=== PATIENT | female | born 1990 | race American Indian/Alaskan Native ===

== ENCOUNTER 2016-02-21 15:33 | Emergency (ER) | payer SELFPAY ==
--- NOTE | 2016-02-21 18:02 | Emergency Department Report ---
Chief Complaint: Vaginal Bleeding Stated Complaint: VAG BLEEDING 3 WKS Time Seen by Provider: 02/21/16 18:02 - HPI History of Present Illness: Patient here reports that she's having vaginal bleeding 2 hours prior to coming to the emergency room. She says she doesn't know she is . Last menstrual period 01/06/2016. She is complaining of lower abdominal pain 4-10 and feels crampy. Denies any nausea vomiting. Denies any urinary burning frequency or urgency. - ROS Review of Systems: all systems are negative unless stated in hpi above - Exam Vital Signs: Vital Signs 02/21/16 16:32 Temperature 98.2 F Pulse Rate 86 Respiratory 18 Rate Blood Pressure 126/86 O2 Sat by Pulse 100 Oximetry Physical Exam: General: This is a 25-year-old female well-nourished well-developed nontoxic in appearance. Abdomen: Soft,tender to palpate pelvic area. Normal bowel sounds. No CVA tenderness. CV: S1, S2. Rate and rhythm. MSE screening note: Focused history and physical exam performed. Due to findings the following was ordered:see [facility] ED Medical Decision Making - Medical Decision Making Medical decision making: Patient seen by provider in triage area. Appropriate protocol activated and patient to main ED to be seen by physician. ED Disposition for MSE Condition: Stable
[2016-02-21 18:29] LABS: Basophils % (Auto) 1.1 % (0.0-1.8); Eosinophils % (Auto) 5.9 % (0.0-4.3); Hematocrit 37.4 % (30.3-42.9); Hemoglobin 12.4 gm/dl (10.1-14.3); Mean Corpuscular HGB Conc 33 % (30-34); Mean Corpuscular Hemoglobin 28 pg (28-32); Mean Corpuscular Volume 84 fl (79-97); Platelet Count 392 K/mm3 (140-440); Red Blood Count 4.45 M/mm3 (3.65-5.03); Red Cell Distribution Width 14.7 % (13.2-15.2); White Blood Count 9.3 K/mm3 (4.5-11.0)
[2016-02-21 19:34] LABS: Bilirubin,Urine NEG (Negative); Blood,Urine LG (Negative); Ketones,Urine NEG (Negative); Leukocyte Esterase,Urine NEG (Negative); Nitrite,Urine NEG (Negative); Protein,Urine <15 mg/dL mg/dL (Negative); RBC,Urine < 1.0 /HPF (0.0-6.0); Urobilinogen,Urine < 2.0 mg/dL (<2.0); WBC,Urine < 1.0 /HPF (0.0-6.0)
[2016-02-21] MEDS ORDERED: TYLENOL PO ONE (22:39)
[2016-02-21] MEDS ORDERED: FLAGYL PO ONE (23:01)
--- NOTE | 2016-02-21 23:01 | Emergency Department Report ---
ED Female HPI - General Chief complaint: Vaginal Bleeding Stated complaint: VAG BLEEDING 3 WKS Time Seen by Provider: 02/21/16 18:51 Source: patient Mode of arrival: Ambulatory Limitations: No Limitations - History of Present Illness Initial comments: 25-year-old female with no significant past medical history presents to the hospital complaining of vaginal bleeding this afternoon. Patient states that she had vaginal bleeding while using the bathroom and lasted for about 3 hours and then resolved. Unsure if she is by LMP 01/06/2016. Patient states she had a negative test February 09 when she is went to the doctor but they've told her maybe it is too early for a positive test. Patient complains of constant crampy 5/10 abdominal pain. No aggravating or alleviating factors reported. No dysuria, nausea, vomiting reported. Patient has never been before. - Related Data Previous Rx's Medication Instructions Recorded Last Taken Type Amoxicillin [Trimox CAP] 500 mg PO Q8H #21 capsule 04/26/13 Unknown Rx HYDROcodone/APAP 5-325 [[place] 1 each PO Q6HR PRN #16 tablet 04/26/13 Unknown Rx 5-325 mg TAB] Promethazine Dm [Phenergan DM 5 ml PO Q6H PRN #120 ml 04/26/13 Unknown Rx 6.25-15 mg/5 ml] metroNIDAZOLE [Flagyl] 500 mg PO Q12HR #14 tab 02/21/16 Unknown Rx Allergies Allergy/AdvReac Type Severity Reaction Status Date / Time No Known Allergies Allergy Verified 04/26/13 00:41 ED Review of Systems ROS: Stated complaint: VAG BLEEDING 3 WKS Other details as noted in HPI Comment: All other systems reviewed and negative Other: Constitutional: No fevers chills Eyes: No eye pain visual changes ENT: No ear pain or throat pain Neck: Denies pain Respiratory: Denies cough wheezing shortness of breath Cardiovascular: Denies chest pain, palpitations GI: Denies nausea, vomiting, diarrhea : as pe rhpi Musculoskeletal: Denies back pain Skin: Denies rash, lesions, erythema Neurologic: Denies headache, numbness, weakness Psychiatric: Denies suicidal ideation, hallucinations ED Past Medical Hx - Past Medical History Previous Medical History?: No - Surgical History Past Surgical History?: No - Social History Smoking Status: Never Smoker Substance Use Type: None - Medications Home Medications: Home Medications Medication Instructions Recorded Confirmed Last Taken Type Amoxicillin [Trimox CAP] 500 mg PO Q8H #21 capsule 04/26/13 Unknown Rx HYDROcodone/APAP 5-325 [[place] 1 each PO Q6HR PRN #16 tablet 04/26/13 Unknown Rx 5-325 mg TAB] Promethazine Dm [Phenergan DM 5 ml PO Q6H PRN #120 ml 04/26/13 Unknown Rx 6.25-15 mg/5 ml] metroNIDAZOLE [Flagyl] 500 mg PO Q12HR #14 tab 02/21/16 Unknown Rx ED Physical Exam - General Limitations: No Limitations - Other Other exam information: General: No limitations, patient is alert in no acute distress Head exam: Atraumatic, normocephalic Eyes exam: Normal appearance, pupils equal reactive to light, extraocular movements intact ENT: Moist mucous membrane, normal oropharynx Neck exam: Normal inspection, full range of motion, no meningismus nontender Respiratory exam: Clear to auscultation bilateral, no wheezes, rales, crackles Cardiovascular: Normal rate and rhythm, normal heart sounds Abdomen: Soft, nondistended, and nontender, with normal bowel sounds, no rebound, or guarding : Brown minimum blood in vault, no CMT or adnexal tenderness Extremity: Full range of motion normal inspection no deformity Back: Normal Inspection, full range of motion, no tenderness Neurologic: Alert, oriented x3, cranial nerves intact, no motor or sensory deficit Psychiatric: normal affect, normal mood Skin: Warm, dry, intact ED Course Vital Signs 02/21/16 16:32 Temperature 98.2 F Pulse Rate 86 Respiratory 18 Rate Blood Pressure 126/86 O2 Sat by Pulse 100 Oximetry - Reevaluation(s) Reevaluation #1: 02/21/16 23:04 Tylenol and Flagyl ordered ED Medical Decision Making - Lab Data Result diagrams: 02/21/16 18:16 Lab Results 02/21/16 02/21/16 02/21/16 Range/Units 18:15 18:16 18:16 WBC 9.3 (4.5-11.0) K/mm3 RBC 4.45 (3.65-5.03) M/mm3 Hgb 12.4 (10.1-14.3) gm/dl Hct 37.4 (30.3-42.9) % MCV 84 (79-97) fl MCH 28 (28-32) pg MCHC 33 (30-34) % RDW 14.7 (13.2-15.2) % Plt Count 392 (140-440) K/mm3 Lymph % (Auto) 35.6 H (13.4-35.0) % [place] % (Auto) 9.5 H (0.0-7.3) % Eos % (Auto) 5.9 H (0.0-4.3) % Baso % (Auto) 1.1 (0.0-1.8) % Lymph # 3.3 (1.2-5.4) K/mm3 [place] # 0.9 H (0.0-0.8) K/mm3 Eos # 0.6 H (0.0-0.4) K/mm3 Baso # 0.1 (0.0-0.1) K/mm3 Seg Neutrophils % 47.9 (40.0-70.0) % Seg Neutrophils # 4.5 (1.8-7.7) K/mm3 HCG, Qual Negative (Negative) Urine Color Yellow (Yellow) Urine Turbidity Clear (Clear) Urine pH 6.0 (5.0-7.0) Ur Specific [place] 1.026 (1.003-1.030) Urine Protein <15 mg/dl (Negative) mg/dL Urine Glucose (UA) Neg (Negative) mg/dL Urine Ketones Neg (Negative) mg/dL Urine Blood Lg (Negative) Urine Nitrite Neg (Negative) Urine Bilirubin Neg (Negative) Urine Urobilinogen < 2.0 (<2.0) mg/dL Ur Leukocyte Esterase Neg (Negative) Urine WBC (Auto) < 1.0 (0.0-6.0) /HPF Urine RBC (Auto) < 1.0 (0.0-6.0) /HPF Blood Type Antibody Screen 02/21/16 Range/Units 18:20 WBC (4.5-11.0) K/mm3 RBC (3.65-5.03) M/mm3 Hgb (10.1-14.3) gm/dl Hct (30.3-42.9) % MCV (79-97) fl MCH (28-32) pg MCHC (30-34) % RDW (13.2-15.2) % Plt Count (140-440) K/mm3 Lymph % (Auto) (13.4-35.0) % [place] % (Auto) (0.0-7.3) % Eos % (Auto) (0.0-4.3) % Baso % (Auto) (0.0-1.8) % Lymph # (1.2-5.4) K/mm3 [place] # (0.0-0.8) K/mm3 Eos # (0.0-0.4) K/mm3 Baso # (0.0-0.1) K/mm3 Seg Neutrophils % (40.0-70.0) % Seg Neutrophils # (1.8-7.7) K/mm3 HCG, Qual (Negative) Urine Color (Yellow) Urine Turbidity (Clear) Urine pH (5.0-7.0) Ur Specific [place] (1.003-1.030) Urine Protein (Negative) mg/dL Urine Glucose (UA) (Negative) mg/dL Urine Ketones (Negative) mg/dL Urine Blood (Negative) Urine Nitrite (Negative) Urine Bilirubin (Negative) Urine Urobilinogen (<2.0) mg/dL Ur Leukocyte Esterase (Negative) Urine WBC (Auto) (0.0-6.0) /HPF Urine RBC (Auto) (0.0-6.0) /HPF Blood Type A POSITIVE Antibody Screen Negative Wet prep greater than 20 clue cells, negative Trichomonas, negative yeast - Medical Decision Making Patient's (E test is negative. No pain on exam. Will be treated for bacterial vaginosis and encouraged to follow-up with [facility]STATE [facility]NAGER for further workup of irregular cycle - Differential Diagnosis vaginitis, , irregular cycle Critical Care Time: No Critical care attestation.: If time is entered above; I have spent that time in minutes in the direct care of this critically ill patient, excluding procedure time. ED Disposition Clinical Impression: Bacterial vaginosis, Irregular menses Disposition: OP ADMITTED IP TO THIS HOSP Is pt being admited?: Yes Condition: Stable Instructions: Bacterial Vaginosis (ED), Menstruation (ED) Additional Instructions: Take the medication as prescribed. Take Tylenol as needed for pain and follow- up with the ESTATE MANAGER doctor provided. Return if symptoms worsen.Your gonorrhea and chlamydia tests are pending and take approximately 3-4 days result. You may obtain results to medical records with a photo ID. You may also obtain results through the follow-up doctor office via medical record request. Prescriptions: metroNIDAZOLE [Flagyl] 500 mg PO Q12HR #14 tab Referrals: JOANN HYDE MD [Staff Physician] - 3-5 Days (ESTATE MANAGER) Forms: STI Treatment and Prevention Time of Disposition: 23:26
[2016-02-21 23:56] VITALS: BP 121/68
== END 2016-02-21 23:57 | disposition home or self-care (01) ==
LOC: ED 15:33
DX: N76.0 Acute vaginitis (principal); N92.6 Irregular menstruation, unspecified
CPT/HCPCS: 36415; 81001; 84703; 85025; 86850; 86900; 86901; 87210; 87591; 99284

== ENCOUNTER 2019-10-18 21:02 | Emergency (ER) | payer SELFPAY ==
[2019-10-18 21:47] VITALS: BP 111/75
[2019-10-18] MEDS ORDERED: ACETAMINOPHEN 325 MG TAB PO ONE (21:47)
[2019-10-18] MEDS ORDERED: ACETAMINOPHEN 325 MG TAB ONE (21:49)
[2019-10-18 22:33] LABS: Alanine Aminotransferase 11 units/L (7-56); Albumin 4.5 g/dL (3.9-5); Basophils # (Auto) 0.1 K/mm3 (0.0-0.1); Basophils % (Auto) 0.6 % (0.0-1.8); Blood Urea Nitrogen 13 mg/dL (7-17); Calcium 9.6 mg/dL (8.4-10.2); Eosinophils # (Auto) 0.4 K/mm3 (0.0-0.4); Eosinophils % (Auto) 3.7 % (0.0-4.3); Hematocrit 38.7 % (30.3-42.9); Hemoglobin 12.6 gm/dl (10.1-14.3); Hemolysis Index 7; Lymphocytes # (Auto) 2.8 K/mm3 (1.2-5.4); Lymphocytes % (Auto) 27.2 % (13.4-35.0); Mean Corpuscular HGB Conc 33 % (30-34); Mean Corpuscular Volume 85 fl (79-97); Monocytes # (Auto) 0.9 K/mm3 (0.0-0.8); Monocytes % (Auto) 8.6 % (0.0-7.3); Platelet Count 320 K/mm3 (140-440); Red Blood Count 4.58 M/mm3 (3.65-5.03); Red Cell Distribution Width 13.6 % (13.2-15.2)
[2019-10-18 22:37] LABS: BUN/Creatinine Ratio 19
[2019-10-19] MEDS ORDERED: ONDANSETRON 4 MG/2 ML INJ IV ONE (01:04)
[2019-10-19] MEDS ORDERED: FAMOTIDINE 20 MG/2 ML INJ IV ONE (01:04)
[2019-10-19] MEDS ORDERED: SODIUM CHLORIDE 0.9% 1000 ML 1,000 ML IV ONE (01:04)
[2019-10-19] MEDS ORDERED: MORPHINE 4 MG/1 ML INJ IV ONE (01:04)
--- NOTE | 2019-10-19 03:13 | Cat Scan Report ---
CT abdomen pelvis w con INDICATION: Patient complains of "Generalized" abdominal pain. TECHNIQUE: All CT scans at this location are performed using the following dose modulation technique: Automated exposure control. CONTRAST: Omnipaque 300, 100 cc IV injection. COMPARISON: None available. CT ABDOMEN: The parenchymal organs are unremarkable in appearance. Negative for abdominal mass, fluid or inflammation. The bowel is not dilated or thickened. A normal appendix is identified. CT PELVIS: The appendix is normal. The right ovary contains a partially ruptured cyst measuring 2.3 c m. A small amount of pelvic free fluid is present. IMPRESSION: 1. Partially ruptured right ovarian cyst. 2. Small amount of pelvic free fluid. Signer Name: Jacky Galvan MD Signed: 10/19/2019 3:09 AM Workstation Name: [id number]
[2019-10-19 03:42] LABS: Bilirubin,Urine NEG (Negative); Blood,Urine NEG (Negative); Color,Urine Yellow (Yellow); Mucus,Urine FEW /HPF; Protein,Urine <15 mg/dL mg/dL (Negative); Urobilinogen,Urine < 2.0 mg/dL (<2.0); WBC,Urine < 1.0 /HPF (0.0-6.0)
--- NOTE | 2019-10-19 04:18 | Emergency Department Report ---
ED Abdominal Pain HPI - General Chief Complaint: Abdominal Pain Stated Complaint: SEVERE ABD PAIN Source: patient Mode of arrival: Ambulatory Limitations: No Limitations - History of Present Illness Initial Comments: Patient is a A0 28-year-old -[place] female with no past medical history who presents to the ED with acute onset persistent diffuse abdominal pain with nausea and vomiting for the last 2 weeks intermittently, and which got worse in the last 4 hours. Patient states that the pain became more severe and radiating to the lower abdomen especially in the right lower quadrant area with nausea and vomiting. Patient denies fever, chills, dizziness, syncope, dysuria, urinary frequency and urgency, vaginal bleeding, vaginal discharge, low back pain, hematuria, cough, chest pain or shortness of breath and headache. MD Complaint: abdominal pain, flank pain (right), other (nausea and vomiting) -: Sudden, week(s) (3) Location: diffuse, RLQ Radiation: RLQ, R flank Migration to: no migration Severity scale (0 -10): 7 Quality: aching, sharp Consistency: constant Improves With: nothing Worsens With: movement Associated Symptoms: denies other symptoms, nausea, vomiting. denies: diarrhea, fever, chills, constipation, hematemesis, hematochezia, melena, hematuria, anorexia, syncope, other Treatments Prior to Arrival: NSAIDs - Related Data LMP Date: 10/16/19 Previous Rx's Medication Instructions Recorded Last Taken Type Amoxicillin [Trimox CAP] 500 mg PO Q8H #21 capsule 04/26/13 Unknown Rx HYDROcodone/APAP 5-325 [[place] 1 each PO Q6HR PRN #16 tablet 04/26/13 Unknown Rx 5-325 mg TAB] Promethazine Dm (Nf) [Phenergan DM 5 ml PO Q6H PRN #120 ml 04/26/13 Unknown Rx 6.25-15 mg/5 ml] metroNIDAZOLE [Flagyl] 500 mg PO Q12HR #14 tab 02/21/16 Unknown Rx Ketorolac [Toradol] 10 mg PO Q8H PRN #20 tablet 10/19/19 Unknown Rx Ondansetron [Zofran Odt] 4 mg PO Q6HR PRN #20 tab.rapdis 10/19/19 Unknown Rx traMADoL [Ultram] 50 mg PO Q6HR PRN #12 tablet 10/19/19 Unknown Rx Allergies Allergy/AdvReac Type Severity Reaction Status Date / Time No Known Allergies Allergy Verified 04/26/13 00:41 ED Review of Systems ROS: Stated complaint: SEVERE ABD PAIN Other details as noted in HPI Constitutional: denies: chills, fever Eyes: denies: eye pain, eye discharge, vision change ENT: denies: ear pain, throat pain Respiratory: denies: cough, shortness of breath, wheezing Cardiovascular: denies: chest pain, palpitations Endocrine: no symptoms reported Gastrointestinal: abdominal pain, nausea, vomiting. denies: diarrhea Genitourinary: denies: urgency, dysuria, discharge Musculoskeletal: denies: back pain, joint swelling, arthralgia Skin: denies: rash, lesions Neurological: denies: headache, weakness, paresthesias Psychiatric: denies: anxiety, depression Hematological/Lymphatic: denies: easy bleeding, easy bruising ED Past Medical Hx - Past Medical History Previous Medical History?: No - Surgical History Past Surgical History?: No - Social History Smoking Status: Never Smoker Substance Use Type: None - Medications Home Medications: Home Medications Medication Instructions Recorded Confirmed Last Taken Type Amoxicillin [Trimox CAP] 500 mg PO Q8H #21 capsule 04/26/13 Unknown Rx HYDROcodone/APAP 5-325 [[place] 1 each PO Q6HR PRN #16 tablet 04/26/13 Unknown Rx 5-325 mg TAB] Promethazine Dm (Nf) [Phenergan DM 5 ml PO Q6H PRN #120 ml 04/26/13 Unknown Rx 6.25-15 mg/5 ml] metroNIDAZOLE [Flagyl] 500 mg PO Q12HR #14 tab 02/21/16 Unknown Rx Ketorolac [Toradol] 10 mg PO Q8H PRN #20 tablet 10/19/19 Unknown Rx Ondansetron [Zofran Odt] 4 mg PO Q6HR PRN #20 tab.rapdis 10/19/19 Unknown Rx traMADoL [Ultram] 50 mg PO Q6HR PRN #12 tablet 10/19/19 Unknown Rx ED Physical Exam - General Limitations: No Limitations General appearance: alert, in no apparent distress - Head Head exam: Present: atraumatic, normocephalic, normal inspection - Eye Eye exam: Present: normal appearance, PERRL, EOMI Pupils: Present: normal accommodation - ENT ENT exam: Present: normal exam, normal orophraynx, mucous membranes moist, TM's normal bilaterally, normal external ear exam - Neck Neck exam: Present: normal inspection, full ROM - Respiratory Respiratory exam: Present: normal lung sounds bilaterally. Absent: respiratory distress, wheezes, rales, chest wall tenderness, accessory muscle use, prolonged expiratory - Cardiovascular Cardiovascular Exam: Present: regular rate, normal rhythm, normal heart sounds. Absent: systolic murmur, diastolic murmur, rubs, gallop - GI/Abdominal GI/Abdominal exam: Present: soft, tenderness (Palpable diffuse abdominal tenderness, worse in the right lower quadrant area), normal bowel sounds. Absen t: guarding, rebound, hyperactive bowel sounds, organomegaly, mass - Extremities Exam Extremities exam: Present: normal inspection, full ROM, normal capillary refill - Back Exam Back exam: Present: normal inspection, full ROM. Absent: CVA tenderness (L), muscle spasm, paraspinal tenderness - Neurological Exam Neurological exam: Present: alert, oriented X3, CN II-XII intact, normal gait, reflexes normal - Psychiatric Psychiatric exam: Present: normal affect, normal mood - Skin Skin exam: Present: warm, dry, intact, normal color. Absent: rash ED Course Vital Signs 10/18/19 10/18/19 21:42 21:50 Temperature 98.4 F Pulse Rate 85 Respiratory 18 18 Rate Blood Pressure 111/75 O2 Sat by Pulse 100 Oximetry ED Medical Decision Making - Lab Data Result diagrams: 10/18/19 21:52 10/18/19 21:52 - Radiology Data Radiology results: report reviewed, image reviewed Findings [address] [address] Cat Scan Report Signed Patient: YOSVANY JUSTICE MR#: [id number] : 1990 Acct:[id number] Age/Sex: 28 / F ADM Date: 10/18/19 Loc: ED Attending Dr: Ordering Physician: SHAVONNE CLEMENTS Date of Service: 10/19/19 Procedure(s): CT abdomen pelvis w con Accession Number(s): [id number] cc: SHAVONNE CLEMENTS CT abdomen pelvis w con INDICATION: Patient complains of "Generalized" abdominal pain. TECHNIQUE: All CT scans at this location are performed using the following dose modulation technique: Automated exposure control. CONTRAST: Omnipaque 300, 100 cc IV injection. COMPARISON: None available. CT ABDOMEN: The parenchymal organs are unremarkable in appearance. Negative for abdominal mass, fluid or inflammation. The bowel is not dilated or thickened. A normal appendix is identified. CT PELVIS: The appendix is normal. The right ovary contains a partially ruptured cyst measuring 2.3 cm. A small amount of pelvic free fluid is present. IMPRESSION: 1. Partially ruptured right ovarian cyst. 2. Small amount of pelvic free fluid. Signer Name: Jacky Galvan MD Signed: 10/19/2019 3:09 AM Workstation Name: [id number] Transcribed By: ES Dictated By: Jacky Galvan MD Electronically Authenticated By: Jacky Galvan MD Signed Date/Time: 10/19/19308 DD/ 4 TD/TT: - Medical Decision Making This is a A0 28-year-old -[place] female with no past medical history who presents to the ED with acute onset persistent diffuse abdominal pain with nausea and vomiting for the last 2 weeks intermittently, and which got worse in the last 4 hours. Patient states that the pain became more severe and radiating to the lower abdomen especially in the right lower quadrant area with nausea and vomiting. In the ED, patient is alert and oriented x3 and is not in distress. Patient was treated for pain in the ED and also given antiemetics. Lab test results were reviewed and are all nonactionable. Abdomen pelvis CT scan with contrast showed a partially ruptured 2.3 cm ovarian cyst on the right ovary, and a normal appendix. On reevaluation, patient's pain is well controlled medications. Patient was discharged home on pain medications and also given antiemetics prescriptions. Patient is advised to follow-up with [facility] physician in 5 to 7 days for reevaluation or return to the ED immediately if symptoms get worse. - Differential Diagnosis Appendicitis; UTI; Ovarian cyst; Ectopic ; Kidney stones Critical care attestation.: If time is entered above; I have spent that time in minutes in the direct care of this critically ill patient, excluding procedure time. ED Disposition Clinical Impression: Nausea and vomiting in adult, Rupture of cyst of right ovary Abdominal pain Qualifiers: Abdominal location: right lower quadrant Qualified Code(s): R10.31 - Right lower quadrant pain Disposition: DC- TO HOME OR SELFCARE Is pt being admited?: No Does the pt Need Aspirin: No Condition: Stable Instructions: Abdominal Pain (ED), Ovarian Cyst (ED) Additional Instructions: All lab test results are unremarkable. Abdomen pelvis CT scan with contrast showed ruptured ovarian cyst on the right. Therefore take medications with food, drink plenty fluids and follow-up with your [facility] [employer] physician in 5 to 7 days for reevaluation. Return to the ED immediately if symptoms get worse. Prescriptions: Ketorolac [Toradol] 10 mg PO Q8H PRN #20 tablet PRN Reason: Pain traMADoL [Ultram] 50 mg PO Q6HR PRN #12 tablet PRN Reason: Pain Ondansetron [Zofran Odt] 4 mg PO Q6HR PRN #20 tab.rapdis PRN Reason: Nausea Referrals: [facility] [Provider Group] - 3-5 Days Forms: Work/School Release Form(ED) Time of Disposition: 04:20 Print Language: GREEK
== END 2019-10-19 04:30 | disposition home or self-care (01) ==
LOC: ED 21:02
DX: N83.291 Other ovarian cyst, right side (principal); R11.2 Nausea with vomiting, unspecified; Z79.899 Other long term (current) drug therapy
CPT/HCPCS: 36415; 74177; 80053; 81001; 83690; 84703; 85025; 96374; 96375; 99284; J2270; J2405; J7030; Q9967; 96361